=== PATIENT | female | born 1985 | race Caucasian/White ===

== ENCOUNTER 2016-08-13 05:56 | Inpatient (IN) | payer MEDICAID ==
[2016-08-13] VITALS (7 sets, daily range): BP systolic 118–132; BP diastolic 69–81; PULSE 67–79; RESP 18
[~2016-08-13] VITALS: Ht 139.7 cm; Wt 74.2 kg
[2016-08-13] MEDS ORDERED: MISOPROSTOL 200 MCG TAB PR PRN ×2 (06:30→12:30)
[2016-08-13] MEDS ORDERED: CEFAZOLIN 2 GM/50 ML (PMX) 50 ML IV SCH (06:30)
[2016-08-13] MEDS ORDERED: METHYLERGONOVINE 0.2 MG INJ IM PRN ×2 (06:30→12:30)
[2016-08-13] MEDS ORDERED: OXYTOCIN 30 UNITS/LR 500 ML IV PRN ×2 (06:30→12:30)
[2016-08-13] MEDS ORDERED: OXYTOCIN 30 UNITS/LR 500 ML IV SCH ×2 (06:30→12:11)
[2016-08-13] MEDS ORDERED: CARBOPROST 250 MCG INJ IM PRN ×2 (06:30→12:30)
[2016-08-13] MEDS: LACTATED RINGER'S 1,000 ML IV SCH ×3 (07:16→17:30)
[2016-08-13 07:19] LABS: ADD SCAN DIFF NO
[2016-08-13 07:27] LABS: BASOPHILS % 0.4 % (0.0-2.0); EOSINOPHILS # 0.1 10^3/ul (0.0-0.5); EOSINOPHILS % 1.5 % (0.0-7.0); HEMATOCRIT 35.2 % (37.0-47.0); HEMOGLOBIN 11.6 g/dl (12.0-16.0); LYMPHOCYTES # 2.2 10^3/ul (0.8-2.9); LYMPHOCYTES % 27.3 % (15.0-51.0); MEAN PLATELET VOLUME 10.8 fl (7.4-10.4); MONOCYTE # 0.5 10^3/ul (0.3-0.9); MONOCYTES % 6.6 % (0.0-11.0); NEUTROPHIL # 5.2 10^3/ul (1.6-7.5); PLATELET COUNT 163 10^3/UL (140-415); WHITE BLOOD COUNT 8.1 10^3/ul (4.8-10.8)
[2016-08-13 07:36] LABS: INR 0.87; PROTIME 11.8 Sec (12.2-14.2); PT RATIO 0.9
[2016-08-13] MEDS ORDERED: morphine SULFATE/PF (10 MG/10 ML) INJ ONE (07:53)
[2016-08-13] MEDS ORDERED: OXYTOCIN 10 UNIT INJ ONE (07:53)
[2016-08-13] MEDS ORDERED: EPHEDrine SULFATE 50 MG/5 ML SYG ONE (07:53)
[2016-08-13] MEDS ORDERED: METOCLOPRAMIDE 10 MG INJ ONE (07:53)
[2016-08-13] MEDS ORDERED: ONDANSETRON 4 MG INJ ONE (07:53)
[2016-08-13] MEDS ORDERED: OXYTOCIN 30 UNITS/LR 500 ML IV ONE (07:53)
[2016-08-13] MEDS ORDERED: MIDAZOLAM 1 MG/ML 2 ML INJ ONE (08:46)
[2016-08-13] MEDS ORDERED: NALOXONE (0.4 MG/ML) INJ IV PRN (09:30)
[2016-08-13] MEDS ORDERED: HYDROmorphONE 1 MG/ML SYG IV PRN ×2 (09:30)
[2016-08-13] MEDS ORDERED: EPHEDrine SULFATE 50 MG/5 ML SYG IV PRN (09:30)
[2016-08-13] MEDS ORDERED: ONDANSETRON 4 MG INJ IV PRN (09:30)
[2016-08-13] MEDS ORDERED: morphine 2 MG INJ IV PRN ×2 (09:30)
[2016-08-13] MEDS ORDERED: DIPHENHYDRAMINE 50 MG INJ IV PRN (09:30)
[2016-08-13] MEDS ORDERED: morphine SULFATE/PF (10 MG/10 ML) INJ SPINAL ONE (09:30)
[2016-08-13] MEDS: KETOROLAC 30 MG INJ IV PRN ×2 (09:36→20:54)
--- NOTE | 2016-08-13 09:57 | HP ---
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 11 history of total of 3 2 previous C- section no other hospitalization for any other medical or surgical condition Allergies denies allergy to any known Social habit denies a smoking or drinking Family history unremarkable Review of system within normal Physical exam 5 feet 5 inches 170lb Temperature 97.7 pulse 71 respiration 18 blood pressure 131/67 Head ears nose and throat negative Neck supple no Lungs clear to P&A Heart normal sinus rhythm no murmur Abdomen fundal height 37 cm from symphysis pubis with category 1 heart tracing vertex presentation with Oleg maneuvers Pelvic exam deferred Extremities no edema no varicosities Impression intrauterine at 39 weeks history of 2 previous section request for bilateral tubal ligation at the time of Patient is aware of failure rate of tubal ligation increased risk of ectopic future failure to conceive and also the complication of the surgery including bowel bladder injury infection hemorrhage hematoma and she is willing to go ahead with the procedure Estimated Due Date: August 20, 2016 : 3 Para: 2 Care: Good Care Ultrasounds: Normal mid trimester US Obstetrical Complications: None Medical Complications: None Past Family/Social History * Past Medical, Surgical, Family and Obstetric Histories reviewed from chart. Rubella: immune RPR/VDRL: Negative GBS Status: Negative HBsAG: Negative OB Admission Exam Vital Signs Vital Signs Vital Signs Date Time Temp Pulse Resp B/P Pulse Ox O2 Delivery O2 Flow Rate FiO2 08/13/16 06:11 98.3 67 18 132/73 Room Air Physical Exam HEENT: WNL Heart: Rhythm Normal Lungs: Clear, Equal Abdomen: WNL Extremities: Normal Reflexes: Normal Cervical Dilatation: None Effacement: 0% Station: -3 Membranes: Intact Heart Rate: 130's Accelerations: Accelerations Present Decelerations: No Decelerations Contractions on Admission: None Last 72 hours Lab Results CBC & BMP 08/13/16 06:00 OB Assessment/Plan Reason for admission: other (Repeat bilateral tubal ligation) Plan: Other (Repeat and bilateral tubal ligation) YOUSUF LAWRENCE MD Aug 13, 2016 09:57
--- NOTE | 2016-08-13 11:00 | OPR ---
DATE OF OPERATION: 08/13/2016 PREOPERATIVE DIAGNOSES: 1. Intrauterine at 39 weeks and 6 days. History of 2 previous sections. 2. Request for voluntary sterilization, bilateral tubal ligation at the time of section. POSTOPERATIVE DIAGNOSES 1. Intrauterine at 39 weeks and 6 days. History of 2 previous sections. 2. Request for voluntary sterilization, bilateral tubal ligation at the time of section. PROCEDURE: Repeat transverse low cervical section, bilateral tubal ligation. LIVESTOCK RANCH HAND: Dr. Eaton ANESTHESIA: Spinal. ANESTHESIOLOGIST: Dr. Lentz. FINDINGS: Live baby boy, 9 and 9. Baby weighed 3290 grams. DETAILS OF THE PROCEDURE: Under satisfactory spinal anesthesia, the patient was prepped and draped and placed in supine position, tilted to the left. Pfannenstiel incision was made. Old scar was re moved. Incision carried through the subcutaneous tissue. Bleeders brought under control with elect rocautery. Fascia incised to the length of the incision. Rectus muscle divided in midline. Perito neum exposed, entered through a transverse incision. Exploration of abdomen showed tremendous amoun t of adhesions between the anterior uterine wall, omentum and anterior uterine surface and the lower segment, which all the adhesions were taken down by the sharp and blunt dissection, and finally the lower segment of the uterus was free of any adhesions. Bladder flap was developed. Transverse inc ision was made in the lower segment of the uterus. Amniotic sac ruptured. Clear amniotic fluid not ed. Live baby boy was delivered from unengaged vertex with a nuchal cord x1. Nasal oropharyngeal suctio n was performed. Baby handed to the team for immediate attention. Patient received 20 uni ts of Pitocin. Placenta delivered manually intact. Uterine cavity cleaned with wet sponge and vicki ponce established. Uterus closed in 2 layers using Monocryl #1 in continuous fashion. Bilateral tub al ligation performed by identifying the ampullar section of the right fallopian tube which was gras ped by a Damir. A loop was made. Suture material used #0 plain catgut and was reinforced with th e same suture material. The top of the loop 3/4 of inch was excised. The cut end of the tube was c auterized and the specimen submitted for the pathology. The same procedure performed for the opposi te side. Peritoneal cavity irrigated with warm saline. Sponge, needle and instrument reported to be correct. Abdominal peritoneum closed with 2-0 chromic catgut continuously. Rectus muscle approximated with 2 interrupted 2-0 chromic catgut. Fascia closed with #1 PDS in a continuous fashion. Subcutaneous tissue approximated with 2-0 chromic catgut. Skin closed with michael. Estimated blood loss 600 m L. Urine bag contained 200 mL of clear urine. Patient tolerated procedure well, transferred to rec overy room in a good condition. Dictated By: YOUSUF BUCK/KAMAR Conf#: [id number] DID#: [id number]
[2016-08-13] MEDS ORDERED: CEFAZOLIN 1 GM/50 ML (PMX) 50 ML IVPB SCH (12:30)
[2016-08-13] MEDS ORDERED: LANOLIN 7 GM TUBE TOP PRN (12:30)
[2016-08-13] MEDS ORDERED: ACETAMINOPHEN/CODEINE #3 TAB PO PRN ×2 (12:30)
[2016-08-13] MEDS ORDERED: OXYCODONE/ACETAMINOPHEN (5/325) TAB PO PRN (12:30)
[2016-08-13] MEDS: IBUPROFEN 600 MG TAB PO SCH ×2 (14:30→18:49)
[2016-08-14] VITALS: BP 106/57; PULSE 68; RESP 18
[2016-08-14] MEDS: LACTATED RINGER'S 1,000 ML IV SCH ×3 (01:43→12:23)
[2016-08-14 04:00] VITALS: BP 112/64; PULSE 75
[2016-08-14] MEDS: KETOROLAC 30 MG INJ IV PRN (05:41)
[2016-08-14 07:59] VITALS: BP 107/60; PULSE 73; RESP 18
[2016-08-14 08:12] LABS: ADD SCAN DIFF NO
[2016-08-14 08:34] LABS: BASOPHILS % 0.4 % (0.0-2.0); EOSINOPHILS % 0.4 % (0.0-7.0); HEMATOCRIT 30.7 % (37.0-47.0); HEMOGLOBIN 10.1 g/dl (12.0-16.0); LYMPHOCYTES # 1.6 10^3/ul (0.8-2.9); LYMPHOCYTES % 22.1 % (15.0-51.0); MEAN CORPUSCULAR HEMOGLOBIN 29.1 pg (29.0-33.0); MEAN CORPUSCULAR HGB CONC 32.9 g/dl (32.0-37.0); MEAN CORPUSCULAR VOLUME 88.5 fl (82.0-101.0); MEAN PLATELET VOLUME 10.6 fl (7.4-10.4); MONOCYTE # 0.4 10^3/ul (0.3-0.9); MONOCYTES % 5.6 % (0.0-11.0); NEUTROPHIL # 5.1 10^3/ul (1.6-7.5); NEUTROPHILS % 71.2 % (39.0-77.0); PLATELET COUNT 151 10^3/UL (140-415); RED BLOOD COUNT 3.47 10^6/ul (4.20-5.40); RED CELL DISTRIBUTION WIDTH 14.3 % (11.5-14.5); WHITE BLOOD COUNT 7.1 10^3/ul (4.8-10.8)
--- NOTE | 2016-08-14 09:47 | PN ---
Date/Time of Note Date/Time of Note DATE: 08/14/16 TIME: 09:43 OB Subjective Subjective Subjective Laboratory Tests Test 08/14/16 07:59 White Blood Count 7.110^3/ul Red Blood Count 3.4710^6/ul Hemoglobin 10.1g/dl Hematocrit 30.7% Mean Corpuscular Volume 88.5fl Mean Corpuscular Hemoglobin 29.1pg Mean Corpuscular Hemoglobin Concent 32.9g/dl Red Cell Distribution Width 14.3% Platelet Count 23617^3/UL Mean Platelet Volume 10.6fl Neutrophils % 71.2% Lymphocytes % 22.1% Monocytes % 5.6% Eosinophils % 0.4% Basophils % 0.4% Nucleated Red Blood Cells % 0.0/100WBC Neutrophils # 5.110^3/ul Lymphocytes # 1.610^3/ul Monocytes # 0.410^3/ul Eosinophils # 0.010^3/ul Basophils # 0.010^3/ul Nucleated Red Blood Cells # 0.010^3/ul Current Medications Medications (Trade) Dose Ordered Sig/Areli Route PRN Reason Start Time Stop Time Status Last Admin Dose Admin Lactated Ringer's 1,000 ml @ 125 mls/hr Q8H IV 08/13/16 06:04 08/13/16 12:16 DC 08/13/16 17:30 Cefazolin Sodium/ Dextrose 50 ml @ 100 mls/hr ONCE IV 08/13/16 06:30 08/13/16 12:16 DC Oxytocin/Lactated Ringer's 500 ml @ 125 mls/hr ONCE IV 08/13/16 06:30 08/13/16 12:17 DC 08/13/16 09:54 Oxytocin/Lactated Ringer's 500 ml @ 0 mls/hr ONCE PRN IV For Hemorrhage Management 08/13/16 06:30 08/13/16 12:17 DC Methylergonovine Maleate (Methergine) 0.2 mg ONCE PRN IM VAGINAL BLEEDING 08/13/16 06:30 08/13/16 12:17 DC Carboprost Tromethamine (Hemabate) 250 mcg ONCE PRN IM VAGINAL BLEEDING 08/13/16 06:30 08/13/16 12:17 DC Misoprostol (Cytotec) 1,000 mcg ONCE PRN PA VAGINAL BLEEDING 08/13/16 06:30 08/13/16 12:17 DC Ephedrine Sulfate 50 mg 50 mg STK-MED ONCE .ROUTE 08/13/16 07:53 08/13/16 07:54 DC Oxytocin/Lactated Ringer's 500 ml @ ud STK-MED ONCE IV 08/13/16 07:53 08/13/16 07:54 DC Morphine Sulfate (Duramorph) 10 mg STK-MED ONCE .ROUTE 08/13/16 07:53 08/13/16 07:54 DC Ondansetron HCl (Zofran Inj) 4 mg STK-MED ONCE .ROUTE 08/13/16 07:53 08/13/16 07:54 DC Metoclopramide HCl (Reglan) 10 mg STK-MED ONCE .ROUTE 08/13/16 07:53 08/13/16 07:54 DC Oxytocin (Oxytocin) 10 units STK-MED ONCE .ROUTE 08/13/16 07:53 08/13/16 07:54 DC Midazolam HCl (Versed) 2 mg STK-MED ONCE .ROUTE 08/13/16 08:46 08/13/16 08:47 DC Naloxone HCl (Narcan) 0.1 mg Q2M PRN IV FOR RESP RATE 8 OR LESS 08/13/16 09:30 08/14/16 09:29 DC Ketorolac Tromethamine (Toradol) 30 mg Q6H PRN IV PAIN 08/13/16 09:30 08/14/16 09:29 DC 08/14/16 05:41 Morphine Sulfate (morphine) 2 mg Q3H PRN IV PAIN LEVEL 1-5 08/13/16 09:30 08/14/16 09:29 DC Morphine Sulfate (morphine) 4 mg Q3H PRN IV PAIN LEVEL 6-10 08/13/16 09:30 08/14/16 09:29 DC Hydromorphone HCl (Dilaudid) 0.2 mg Q3H PRN IV PAIN LEVEL 1-5 08/13/16 09:30 08/14/16 09:29 DC Hydromorphone HCl (Dilaudid) 0.4 mg Q3H PRN IV PAIN LEVEL 6-10 08/13/16 09:30 08/14/16 09:29 DC Diphenhydramine HCl (Benadryl) 25 mg Q6H PRN IV ITCHING 08/13/16 09:30 08/14/16 09:29 DC Ondansetron HCl (Zofran Inj) 4 mg Q6H PRN IV NAUSEA AND/OR VOMITING 08/13/16 09:30 08/14/16 09:29 DC Morphine Sulfate (Duramorph) 0.2 mg GIVEN ANESTH ONCE SPINAL 08/13/16 09:30 08/13/16 09:33 DC Ephedrine Sulfate 5 mg [id number] PRN IV BLOOD PRESSURE SUPPORT 08/13/16 09:30 Acetaminophen/ Codeine Phosphate (Tylenol No.3) 1 tab Q4H PRN PO PAIN LEVEL 4-6 08/13/16 12:30 Acetaminophen/ Codeine Phosphate (Tylenol No.3) 2 tab Q4H PRN PO PAIN LEVEL 7-10 08/13/16 12:30 Oxycodone/ Acetaminophen (Percocet (5/ 325)) 1 tab Q4H PRN PO PAIN LEVEL 4-6 08/13/16 12:30 Oxycodone/ Acetaminophen (Percocet (5/ 325)) 2 tab Q4H PRN PO PAIN LEVEL 7-10 08/13/16 12:30 Ibuprofen (Motrin) 600 mg Q6 PO 08/14/16 12:00 Simethicone (Mylicon) 160 mg Q8H PRN PO DISTENSION/GAS/BLOATING 08/13/16 12:30 Senna/Docusate Sodium (Senokot-S) 1 tab BID PO 08/14/16 09:00 Lanolin ([id number]-[id number]-Frauyz) 1 applic BEDSIDE MEDICATION PRN TOP BEDSIDE FOR MORE TO NIPPLES 08/13/16 12:30 Diphtheria/ Tetanus/Acell Pertussis 0.5 ml 0.5 ml ONCE ONCE IM* 08/16/16 09:00 08/16/16 09:01 Oxytocin/Lactated Ringer's 500 ml @ 0 mls/hr ONCE PRN IV For Hemorrhage Management 08/13/16 12:30 Methylergonovine Maleate (Methergine) 0.2 mg ONCE PRN IM VAGINAL BLEEDING 08/13/16 12:30 Carboprost Tromethamine (Hemabate) 250 mcg ONCE PRN IM VAGINAL BLEEDING 08/13/16 12:30 Misoprostol 1000 mcg 1,000 mcg ONCE PRN PA VAGINAL BLEEDING 08/13/16 12:30 Cefazolin Sodium 50 ml @ 100 mls/hr ONCE IVPB 08/13/16 12:30 08/13/16 12:59 DC 08/13/16 12:57 Oxytocin/Lactated Ringer's 500 ml @ 125 mls/hr Q4H IV 08/13/16 12:11 08/13/16 21:30 DC 08/13/16 12:59 Lactated Ringer's (Lr) 1,000 ml @ 125 mls/hr Q8H IV 08/14/16 01:30 08/14/16 01:43 Post day 1 Afebrile vital signs stable she is ambulating with no sign of pain or discomfort , abdomen soft bowel sounds present mild distention incision dry uterus firm lochia moderate extremity normal, ambulation encouraged diet advanced as tolerated YOUSUF LAWRENCE MD Aug 14, 2016 09:47
[2016-08-14] MEDS: SENNA/DOCUSATE NA (8.6MG/50MG) TAB PO SCH ×2 (11:45→21:04)
[2016-08-14] MEDS: IBUPROFEN 600 MG TAB PO SCH ×2 (11:45→17:06)
[2016-08-14] MEDS: OXYCODONE/ACETAMINOPHEN (5/325) TAB PO PRN ×2 (14:43→22:38)
[2016-08-14 16:00] VITALS: BP 126/62; PULSE 72; RESP 18
[2016-08-14 20:35] VITALS: BP 122/63; PULSE 75; RESP 19
[2016-08-15] MEDS: IBUPROFEN 600 MG TAB PO SCH ×5 (00:16→23:47)
[2016-08-15 04:00] VITALS: BP 116/71; PULSE 72; RESP 18
[2016-08-15 08:30] VITALS: BP 120/74; PULSE 64; RESP 18
[2016-08-15] MEDS: SENNA/DOCUSATE NA (8.6MG/50MG) TAB PO SCH ×2 (08:40→20:30)
--- NOTE | 2016-08-15 12:54 | PN ---
Date/Time of Note Date/Time of Note DATE: 08/15/16 TIME: 12:53 OB Subjective Subjective Subjective Post day 2 Afebrile vital signs stable abdomen soft incision dry bowel sounds present no bowel movement extremities negative patient able to pass flatus ambulation recommended enema ordered YOUSUF LAWRENCE MD Aug 15, 2016 12:54
[2016-08-15] MEDS ORDERED: NA PHOSPHATE/BIPHOS 133 ML ENEMA PR ONE (13:00)
[2016-08-15 19:45] VITALS: BP 142/62; PULSE 77; RESP 19
[2016-08-15 23:45] VITALS: BP 122/57; PULSE 67; RESP 17
[2016-08-16 03:45] VITALS: BP 123/63; PULSE 75; RESP 17
[2016-08-16] MEDS: IBUPROFEN 600 MG TAB PO SCH ×2 (05:41→13:06)
[2016-08-16 07:30] VITALS: BP 112/65; PULSE 70; RESP 16
[2016-08-16] MEDS ORDERED: DIPHTH/TET/ACEL PERTUSS (ADULT) 0.5 ML VIAL IM* ONE (09:00)
[2016-08-16] MEDS: SENNA/DOCUSATE NA (8.6MG/50MG) TAB PO SCH (09:36)
--- NOTE | 2016-08-16 13:59 | PN ---
Date/Time of Note Date/Time of Note DATE: 08/16/16 TIME: 13:58 OB Subjective Subjective Subjective Post day 1 Afebrile abdomen soft uterus firm incision dry lochia moderate patient is fairly comfortable with oral pain medication ambulation encouraged Current Medications Medications (Trade) Dose Ordered Sig/Areli Route PRN Reason Start Time Stop Time Status Last Admin Dose Admin Lactated Ringer's 1,000 ml @ 125 mls/hr Q8H IV 08/13/16 06:04 08/13/16 12:16 DC 08/13/16 17:30 Cefazolin Sodium/ Dextrose 50 ml @ 100 mls/hr ONCE IV 08/13/16 06:30 08/13/16 12:16 DC Oxytocin/Lactated Ringer's 500 ml @ 125 mls/hr ONCE IV 08/13/16 06:30 08/13/16 12:17 DC 08/13/16 09:54 Oxytocin/Lactated Ringer's 500 ml @ 0 mls/hr ONCE PRN IV For Hemorrhage Management 08/13/16 06:30 08/13/16 12:17 DC Methylergonovine Maleate (Methergine) 0.2 mg ONCE PRN IM VAGINAL BLEEDING 08/13/16 06:30 08/13/16 12:17 DC Carboprost Tromethamine (Hemabate) 250 mcg ONCE PRN IM VAGINAL BLEEDING 08/13/16 06:30 08/13/16 12:17 DC Misoprostol (Cytotec) 1,000 mcg ONCE PRN [place] VAGINAL BLEEDING 08/13/16 06:30 08/13/16 12:17 DC Ephedrine Sulfate 50 mg 50 mg STK-MED ONCE .ROUTE 08/13/16 07:53 08/13/16 07:54 DC Oxytocin/Lactated Ringer's 500 ml @ ud STK-MED ONCE IV 08/13/16 07:53 08/13/16 07:54 DC Morphine Sulfate (Duramorph) 10 mg STK-MED ONCE .ROUTE 08/13/16 07:53 08/13/16 07:54 DC Ondansetron HCl (Zofran Inj) 4 mg STK-MED ONCE .ROUTE 08/13/16 07:53 08/13/16 07:54 DC Metoclopramide HCl (Reglan) 10 mg STK-MED ONCE .ROUTE 08/13/16 07:53 08/13/16 07:54 DC Oxytocin (Oxytocin) 10 units STK-MED ONCE .ROUTE 08/13/16 07:53 08/13/16 07:54 DC Midazolam HCl (Versed) 2 mg STK-MED ONCE .ROUTE 08/13/16 08:46 08/13/16 08:47 DC Naloxone HCl (Narcan) 0.1 mg Q2M PRN IV FOR RESP RATE 8 OR LESS 08/13/16 09:30 08/14/16 09:29 DC Ketorolac Tromethamine (Toradol) 30 mg Q6H PRN IV PAIN 08/13/16 09:30 08/14/16 09:29 DC 08/14/16 05:41 Morphine Sulfate (morphine) 2 mg Q3H PRN IV PAIN LEVEL 1-5 08/13/16 09:30 08/14/16 09:29 DC Morphine Sulfate (morphine) 4 mg Q3H PRN IV PAIN LEVEL 6-10 08/13/16 09:30 08/14/16 09:29 DC Hydromorphone HCl (Dilaudid) 0.2 mg Q3H PRN IV PAIN LEVEL 1-5 08/13/16 09:30 08/14/16 09:29 DC Hydromorphone HCl (Dilaudid) 0.4 mg Q3H PRN IV PAIN LEVEL 6-10 08/13/16 09:30 08/14/16 09:29 DC Diphenhydramine HCl (Benadryl) 25 mg Q6H PRN IV ITCHING 08/13/16 09:30 08/14/16 09:29 DC Ondansetron HCl (Zofran Inj) 4 mg Q6H PRN IV NAUSEA AND/OR VOMITING 08/13/16 09:30 08/14/16 09:29 DC Morphine Sulfate (Duramorph) 0.2 mg GIVEN ANESTH ONCE SPINAL 08/13/16 09:30 08/13/16 09:33 DC Ephedrine Sulfate 5 mg [id number] PRN IV BLOOD PRESSURE SUPPORT 08/13/16 09:30 Acetaminophen/ Codeine Phosphate (Tylenol No.3) 1 tab Q4H PRN PO PAIN LEVEL 4-6 08/13/16 12:30 Acetaminophen/ Codeine Phosphate (Tylenol No.3) 2 tab Q4H PRN PO PAIN LEVEL 7-10 08/13/16 12:30 Oxycodone/ Acetaminophen (Percocet (5/ 325)) 1 tab Q4H PRN PO PAIN LEVEL 4-6 08/13/16 12:30 08/15/16 08:41 Oxycodone/ Acetaminophen (Percocet (5/ 325)) 2 tab Q4H PRN PO PAIN LEVEL 7-10 08/13/16 12:30 08/14/16 22:38 Ibuprofen (Motrin) 600 mg Q6 PO 08/14/16 12:00 08/14/16 12:00 DC Simethicone (Mylicon) 160 mg Q8H PRN PO DISTENSION/GAS/BLOATING 08/13/16 12:30 Senna/Docusate Sodium (Senokot-S) 1 tab BID PO 08/14/16 09:00 08/16/16 09:36 Lanolin ([id number]) 1 applic BEDSIDE MEDICATION PRN TOP BEDSIDE FOR MORE TO NIPPLES 08/13/16 12:30 08/15/16 08:41 Diphtheria/ Tetanus/Acell Pertussis 0.5 ml 0.5 ml ONCE ONCE IM* 08/16/16 09:00 08/16/16 09:01 DC 08/16/16 09:34 Oxytocin/Lactated Ringer's 500 ml @ 0 mls/hr ONCE PRN IV For Hemorrhage Management 08/13/16 12:30 Methylergonovine Maleate (Methergine) 0.2 mg ONCE PRN IM VAGINAL BLEEDING 08/13/16 12:30 Carboprost Tromethamine (Hemabate) 250 mcg ONCE PRN IM VAGINAL BLEEDING 08/13/16 12:30 Misoprostol 1000 mcg 1,000 mcg ONCE PRN [place] VAGINAL BLEEDING 08/13/16 12:30 Cefazolin Sodium 50 ml @ 100 mls/hr ONCE IVPB 08/13/16 12:30 08/13/16 12:59 DC 08/13/16 12:57 Oxytocin/Lactated Ringer's 500 ml @ 125 mls/hr Q4H IV 08/13/16 12:11 08/13/16 21:30 DC 08/13/16 12:59 Lactated Ringer's (Lr) 1,000 ml @ 125 mls/hr Q8H IV 08/14/16 01:30 08/14/16 21:43 SANTHOSH 08/14/16 01:43 Ibuprofen (Motrin) 600 mg Q6 PO 08/14/16 12:00 08/16/16 13:06 Sodium Biphosphate/ Sodium Phosphate (Fleet Enema) 133 ml ONCE ONCE [place] 08/15/16 13:00 08/15/16 13:01 YOUSUF COLMENARES MD Aug 16, 2016 13:59
--- NOTE | 2016-08-16 14:03 | PD.PPDC ---
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
--- NOTE | 2016-08-16 14:07 | DS ---
Date/Time of Note Date/Time of Note DATE: 08/16/16 TIME: 14:04 Discharge Summary Admission/Discharge Info Admit Date/Time Aug 13, 2016 at 05:56 Discharge Date/Time AUG 16 2016 at 1400 Final Diagnosis Post repeat bilateral tubal ligation Patient Condition: Good Procedures Repeat bilateral tubal ligation Hx of Present Illness Term history of previous Hospital Course Satisfactory Follow-up Plan Appointment clinic in 4 days to YOUSUF Yates MD Aug 16, 2016 14:07
[2016-08-16] MEDS: OXYCODONE/ACETAMINOPHEN (5/325) TAB PO PRN (15:13)
[2016-08-16 15:45] VITALS: BP 131/66; PULSE 79; RESP 28
== END 2016-08-16 16:50 | disposition home or self-care (01) | DRG 766 ==
LOC: L-D 05:56 → PP1 12:03
PROVIDERS: ADMIT Obstetrics & Gynecology; ATTEND Obstetrics & Gynecology
PROC: 0UB70ZZ Excision of Bilateral Fallopian Tubes, Open Approach (ICD-10-PCS; 2016-08-13)
PROC: 10D00Z1 Extraction of Products of Conception, Low, Open Approach (ICD-10-PCS; principal; 2016-08-13 07:30)
DX: O34.211 Maternal care for low transverse scar from previous cesarean delivery (principal); O69.81X0 Labor and delivery complicated by cord around neck, without compression, not applicable or unspecified; Z3A.39 39 weeks gestation of pregnancy; Z37.0 Single live birth; Z30.2 Encounter for sterilization
CPT/HCPCS: 85025; 85610; 85730; 86592; 86850; 86900; 86901; 87340; 88302; 90715; 94760; 99464; J0690; J1885; J2250; J2274; J2405; J2590; J2765; J7120